=== PATIENT | male | born 1990 | race Caucasian/White ===

== ENCOUNTER → 2019-10-26 12:44 | Outpatient (CLI) | payer BC, SELFPAY ==
[2019-10-26 14:48] LABS: Coronavirus 19 IgG Antibody Negative (Negative); Coronavirus 19 IgM Antibody Negative (Negative)
== END ==
PROVIDERS: PCP Internal Medicine Adolescent Medicine; Visit Provider Internal Medicine Adolescent Medicine
DX: Z03.818 Encounter for observation for suspected exposure to other biological agents ruled out (principal)
CPT/HCPCS: 36415; 86328

== ENCOUNTER → 2020-05-09 10:03 | Outpatient (CLI) | payer BC, SELFPAY | PROVIDERS: PCP Internal Medicine Adolescent Medicine; Visit Provider Internal Medicine Adolescent Medicine | DX: R10.9 Unspecified abdominal pain (principal) ==

== ENCOUNTER 2021-03-04 16:43 | Outpatient (RCR) | payer BC, SELFPAY | END 2021-03-04 17:20 | disposition home or self-care (01) | LOC: PT 16:43 | PROVIDERS: Visit Provider Internal Medicine Adolescent Medicine | DX: S92.902D Unspecified fracture of left foot, subsequent encounter for fracture with routine healing (principal) ==

== ENCOUNTER → 2021-03-05 13:19 | Outpatient (CLI) | payer BC, SELFPAY ==
--- NOTE | 2021-03-05 13:24 | XR_ITS ---
PROCEDURE: XR FOOT LT MIN 3V CLINICAL INDICATION: LT FOOT PAIN COMPARISON: No exams were available for comparison FINDINGS: There is a nondisplaced fracture involving the midshaft of the proximal 4th phalanx. The joint spaces are well-preserved. No significant degenerative/arthritic changes. No erosive changes evident. Other findings:None. IMPRESSION: Nondisplaced fracture midshaft proximal 4th phalanx Dictated by: Axel Wells MD 03/05/2021 18:30 Axel Wells MD in [place] 03/05/2021 18:30
== END ==
PROVIDERS: PCP Internal Medicine Adolescent Medicine; Visit Provider Internal Medicine Adolescent Medicine
DX: M79.672 Pain in left foot (principal)
CPT/HCPCS: 73630

== ENCOUNTER 2021-03-21 09:02 | Outpatient (RCR) | payer BC, SELFPAY | END 2021-03-21 10:00 | disposition home or self-care (01) | LOC: PT 09:02 | PROVIDERS: Visit Provider Orthopaedic Surgery | DX: S92.342A Displaced fracture of fourth metatarsal bone, left foot, initial encounter for closed fracture (principal) | CPT/HCPCS: 97760 ==

== ENCOUNTER → 2021-05-12 13:12 | Outpatient (CLI) | payer BC, SELFPAY | PROVIDERS: Visit Provider Nurse Practitioner | DX: Z20.822 Contact with and (suspected) exposure to COVID-19 (principal) | CPT/HCPCS: C9803; U0003; U0005 ==

== ENCOUNTER 2022-12-28 13:54 | Emergency (ER) | payer BC, SELFPAY ==
[2022-12-28 13:54] VITALS: BP 148/82; PULSE 96; RESP 18; TEMP 36.8; O2SAT 99; BMI 19.9
--- NOTE | 2022-12-28 13:54 | ECG_ITS ---
APPROVED REPORT Exam: Resting ECG HR:76 bpm ECG Measurements Heart Rate 76 AXES MO 151 P 63 QRSd 91 QRS 74 QT 359 T 61 QTc 389 Conclusion SINUS RHYTHM NORMAL ECG UNCONFIRMED REPORT Electronically signed by : Steven Larsen MD 12/29/2022 17:14:54
--- NOTE | 2022-12-28 14:10 | XR_ITS ---
FINAL REPORT CLINICAL HISTORY: chest pressure FINDINGS: 2 views of the chest were obtained . The heart is normal in size. The mediastinum is within normal limits. The lungs are clear. There is no pneumothorax. Osseous structures are unremarkable. IMPRESSION: No acute cardiopulmonary process. Reviewed, Interpreted and Dictated by Donny Oleary III, MD Transcribed by Veronica Bassett Authenticated and [facility]
[2022-12-28 14:19] LABS: Basophils % 0.5 % (0.1-2.0); Eosinophils # 0.1 K/mm3 (0.0-0.4); Eosinophils % 0.9 % (0.1-12.0); Hematocrit 49.8 % (42.0-52.0); Hemoglobin 15.7 g/dL (14.1-18.0); Lymphocytes # 2.6 K/mm3 (0.7-4.5); Lymphocytes % 29.5 % (10-50); Mean Corpuscular HGB Conc 31.5 g/dL (31.8-35.4); Mean Corpuscular Hemoglobin 28.3 pg (27.0-31.2); Mean Corpuscular Volume 89.8 fl (80-94); Mean Platelet Volume 8.2 fl (7.4-10.4); Monocytes # 0.6 K/mm3 (0.1-1.0); Monocytes % 6.8 % (1.7-9.3); Neutrophils # 5.6 K/mm3 (1.8-7.8); Neutrophils % 62.2 % (37.0-80.0); Platelet Count 314 K/mm3 (142-424); Red Blood Count 5.55 M/mm3 (4.60-6.20); Red Cell Distribution Width 13.9 % (11.5-17.5)
--- NOTE | 2022-12-28 14:20 | PC.NURSE ---
Pt returned to room from RAD
[2022-12-28 14:21] LABS: Chloride 101 mmol/L (98-107); Potassium 3.8 mmoL/L (3.5-5.1); Sodium 141 mmol/L (136-145)
[2022-12-28 14:24] LABS: Anion Gap 17.8 mEq/L (5-15); Blood Urea Nitrogen 13 mg/dl (9-20); Carbon Dioxide 26 mmol/L (22.0-30.0); Creatinine Clearance Estimated 129 mL/min (50-200); Estimated Glomerular Filt Rate 111 ml/min (>60); GFR (African American) 134 ML/MIN (>60)
[2022-12-28 14:25] LABS: Calcium 10.5 mg/dl (8.4-10.2); Glucose 82 mg/dl (74-100)
[2022-12-28 14:30] VITALS: BP 141/73; PULSE 91; RESP 13; O2SAT 97
[2022-12-28 14:49] LABS: Troponin I < 0.01 ng/ml (0.00-0.034)
[2022-12-28 15:00] VITALS: BP 127/77; PULSE 81; RESP 12; O2SAT 98
--- NOTE | 2022-12-28 15:01 | HMH.EDGENADL ---
Discharge Plan Disposition Patient Disposition: Home, Self-Care Chief Complaint: Chest Pain Prescriptions Prescriptions: No Action gabapentin 300 mg capsule 300 mg PO PRN Referrals Follow up/Referrals: Shanthi Brantley [Primary Care Provider] - See instructions Activity Restrictions/Add. Instructions Additional Instructions/Restrictions: Call your family doctor to establish care for this visit to the emergency department and schedule follow-up within 48 hours to ensure improvement. If you have any worsening of your condition or any other concerning signs or symptoms, return to the emergency department or your primary care doctor for further evaluation. Clinical Impressions Clinical Impression: Pressure in chest Discharge ED Provider: Yimi Goldsmith General Adult HPI General Chief complaint: Chest Pain Stated complaint: Chest Pain Time Seen by Provider: 12/28/22 14:18 Mode of Arrival: Ambulatory Source of Information: Patient Limitations: No Limitations Description of Symptoms (Recalled from ER Triage Doc. by RN): c/o chest pressure since 7am this morning and coughing for 2 weeks. PT states that he was laying in bed this morning when he felt the pressure in the center of his chest. History of Present Illness HPI narrative: 32-year-old male with no past medical history presenting with chest tightness. Patient states that he has had a cough for about 2 weeks is nonproductive, dry. Woke up today, cough was worse, felt as if he had a pressure in his chest. Nonpositional, not associated with shortness of breath, nausea or vomiting, diaphoresis, neurologic deficits, or any other concerns. States it feels like his allergies, but wanted to make sure. Related Data Home Medications Medication Instructions Recorded Confirmed gabapentin 300 mg capsule 300 mg PO PRN 03/21/21 03/21/21 Allergies Allergy/AdvReac Type Severity Reaction Status Date / Time No Known Drug Allergies Allergy Unknown Verified 03/21/21 08:33 [facility] Disclaimer: The information contained in this section may have been updated after the patient was seen, as this information can be updated by other users. Social History Smoking Status: Never smoker alcohol intake: current current occupational status: employed Travel in the last 8 weeks: None ROS Obtained: Yes All systems reviewed & no additional complaints except as documented Physical Exam General General appearance: alert, in no apparent distress and other ( ) Head Head exam: atraumatic and normocephalic Eye Eye exam: Present normal appearance, PERRL and EOMI ENT ENT exam: Present mucous membranes moist Neck Neck exam: Present normal inspection, full ROM and trachea midline Respiratory Respiratory exam: Absent respiratory distress, wheezes, stridor, accessory muscle use or prolonged expiratory phase Cardiovascular Cardiovascular exam: Present regular rate and normal rhythm Abdominal Exam Abdominal exam: Present soft; Absent distention, tenderness, guarding, rebound, rigidity or normal bowel sounds Extremities Exam Extremities exam: Absent edema Neurological Exam Neurological exam: Present alert, oriented X3, CN II-XII intact and normal gait; Absent motor sensory deficit Skin Skin exam: Present warm and dry; Absent diaphoresis or erythema Medical Decision Making Medical Records Medical records reviewed: Yes I reviewed the patient's medical records. Giorgi Inquiry Pt receiving controlled substance: No Giorgi was queried for this patient: No Vital Signs: 12/28/22 13:54 12/28/22 14:30 12/28/22 15:00 Temperature 98.3 F Temperature Source Oral Pulse Rate 91 H 81 Pulse Rate [Left Radial] 96 H Respiratory Rate 18 13 12 Blood Pressure 141/73 H 127/77 Blood Pressure [Right Arm] 148/82 H Blood Pressure Mean 96 98 Blood Pressure Mean [Right Arm] 104 Blood Pressure Source [Right Arm] Automatic Cuff Blood Pressure Position [Right Arm] Sitting
--- NOTE | 2022-12-28 15:29 | PC.NURSE ---
Rounded on pt. No needs voiced at this time. Call light within reach.
[2022-12-28 15:31] VITALS: BP 125/81; PULSE 75; O2SAT 98
--- NOTE | 2022-12-28 15:53 | PC.NURSE ---
rounded on pt
[2022-12-28 16:40] VITALS: BP 131/79; PULSE 70; RESP 18; TEMP 36.7; O2SAT 99
== END 2022-12-28 16:40 | disposition home or self-care (01) ==
PROVIDERS: Emergency Medicine; Emergency Provider Emergency Medicine; PCP Family Medicine
DX: R07.9 Chest pain, unspecified (principal); R05.9 Cough, unspecified
CPT/HCPCS: 71046; 80048; 84484; 85025; 93005; 96360; 99285